=== PATIENT | male | born 1960 | race Native Hawaiian/Other Pacific Islander ===

== ENCOUNTER 2017-12-03 15:48 | Outpatient (CLI) | payer BC | END 2017-12-03 21:50 | disposition home or self-care (01) | LOC: CT 15:48 | DX: S42.355A Nondisplaced comminuted fracture of shaft of humerus, left arm, initial encounter for closed fracture (principal) ==

== ENCOUNTER 2019-04-23 07:57 | Outpatient (CLI) | payer BC | END 2019-04-23 19:28 | disposition home or self-care (01) | LOC: CT 07:57 | DX: R10.32 Left lower quadrant pain (principal) | CPT/HCPCS: 36415; 82565; 84520; Q9963 ==

== ENCOUNTER 2020-04-13 07:33 | Outpatient (CLI) | payer BC | END 2020-04-13 23:15 | disposition home or self-care (01) | LOC: LABW 07:33 | DX: R97.20 Elevated prostate specific antigen [PSA] (principal) | CPT/HCPCS: 36415; 84153 ==

== ENCOUNTER 2020-05-14 10:52 | Outpatient (CLI) | payer BC | END 2020-05-14 23:14 | disposition home or self-care (01) | LOC: LABW 10:52 | DX: R97.20 Elevated prostate specific antigen [PSA] (principal) | CPT/HCPCS: 36415; 84153 ==

== ENCOUNTER 2020-08-25 12:32 | Outpatient (CLI) | payer BC, OTHER | END 2020-08-25 22:14 | disposition home or self-care (01) | LOC: LAB 12:32 | PROVIDERS: ATTEND Family Medicine | DX: Z20.828 Contact with and (suspected) exposure to other viral communicable diseases (principal) | CPT/HCPCS: 87635; G2023; U0003 ==

== ENCOUNTER 2020-08-31 11:54 | Outpatient (CLI) | payer BC, OTHER | END 2020-08-31 19:16 | disposition home or self-care (01) | LOC: LAB 11:54 | PROVIDERS: ATTEND Family Medicine | DX: Z20.828 Contact with and (suspected) exposure to other viral communicable diseases (principal) | CPT/HCPCS: 36415; 86769; 87635; G2023; U0003 ==

== ENCOUNTER 2020-09-20 13:22 | Outpatient (CLI) | payer BC, OTHER | END 2020-09-20 20:44 | disposition home or self-care (01) | LOC: LAB 13:22 | PROVIDERS: ATTEND Family Medicine | DX: Z20.828 Contact with and (suspected) exposure to other viral communicable diseases (principal) ==

== ENCOUNTER 2022-04-05 16:12 | Outpatient (CLI) | payer BC | END 2022-04-05 19:26 | disposition home or self-care (01) | LOC: RAD 16:12 | PROVIDERS: ATTEND Family Medicine | DX: R07.81 Pleurodynia (principal); R10.12 Left upper quadrant pain ==